=== PATIENT | female | born 1935 | race Caucasian/White ===

== ENCOUNTER 2016-12-10 09:44 | Inpatient (IN) ==
--- NOTE | 2016-12-10 10:15 | Emergency Department Note ---
Disposition Clinical Impression: Retroperitoneal hemorrhage Closed fracture of transverse process of lumbar vertebra Qualifiers: Encounter type: initial encounter Qualified Code(s): S32.009A - Unspecified fracture of unspecified lumbar vertebra, initial encounter for closed fracture Disposition: Admitted As Inpatient Condition: Fair Forms: ED Satisfaction Letter Fall HPI - General Chief Complaint: ED Fall Stated Complaint: Fall Time Seen by Provider: 12/10/16 09:45 Source: patient, EMS, other (nurse from [facility]) Mode of arrival: EMS Limitations: other (History of dementia) Nursing Notes Reviewed: Yes Vital Signs Reviewed: Yes - History of Present Illness Pt Subjective Complaint: fall Onset (ago): Just [employer] Fall From: standing Fall Witnessed: no Place Fall Occurred: group home/SNF Loss of Consciousness: unsure Prolonged Down Time?: no (No, per the group home nurse) Symptoms Prior to Fall: dizziness (Per the patient's nurse, the patient complained of feeling dizzy this morning and was told to stay in bed. Patient denies dizziness and states that she does not think she felt dizzy before she fell.) Context: history of frequent falls (Including a fall last week), unknown Location of injury: head, back Location of injury - extremities: Right: hip, thigh Severity: moderate Quality: stabbing, aching Associated symptoms (after fall): Denies: headache, neck pain, numbness, weakness, chest pain, shortness of breath, abdominal pain, hematuria, unable to walk, lightheaded, vertigo, confusion - Related Data Home Medications Medication Instructions Recorded Confirmed Atorvastatin [Lipitor] 10 mg PO DAILY 10/18/15 03/25/16 Donepezil [Aricept] 10 mg PO HS 10/18/15 03/25/16 Omeprazole [PriLOSEC] 20 mg PO BIDAC 10/18/15 03/25/16 Previous Rx's Medication Instructions Recorded Carvedilol [Coreg] 3.125 mg PO BIDWM tablet 03/29/16 Lisinopril [Zestril] 2.5 mg PO DAILY tablet 03/29/16 OLANZapine [Zyprexa] 2.5 mg PO DAILY #30 tablet 06/12/16 Allergies Allergy/AdvReac Type Severity Reaction Status Date / Time shrimp Allergy Abdominal Verified 11/25/16 20:40 Pain All systems ED: reviewed and negative except as stated. Constitutional: Denies: fever, chills, weakness Eyes: Denies: vision change Cardiovascular: Denies: chest pain, palpitations, dyspnea on exertion Respiratory: Denies: dyspnea Gastrointestinal: Denies: abdominal pain, nausea, vomiting Musculoskeletal: Reports: as per HPI, back pain. Denies: neck pain, joint swelling, arthralgia Integumentary: Denies: abrasion Neurological: Denies: headache, weakness, numbness, paresthesias, confusion, vertigo Hematological/Lymphatic: Denies: easy bleeding, easy bruising Fall PMH - Past Medical History Medical history: Reports: aortic aneurysm (Thoracic), arthritis, dementia, hypertension, osteoporosis Surgical history: Reports: hip replacement, knee replacement, orthopedic, other , other Psychiatric history: Reports: no psych history - Social History Smoking Status: Never smoker Alcohol use: Reports: none Drug use: Reports: none Physical Exam - General Limitations: no limitations General appearance: alert, in no apparent distress - Head Head exam: atraumatic, normocephalic, normal inspection - Eye Eye exam: Present: PERRL, EOMI, nystagmus (Mild horizontal), miosis, other ( Yellow and brown healing ecchymotic are on the right inferior orbital rim). Absent: scleral icterus, conjunctival injection, periorbital swelling, periorbital tenderness - ENT ENT exam: mucous membranes dry - Neck Neck exam: Present: normal inspection, full ROM, trachea midline. Absent: tenderness - Expanded Neck Exam Neck exam focused ED: Absent: midline tenderness, paraspinal tenderness, tenderness (other), anterior neck swelling - Chest Chest inspection: Present: normal inspection, symmetric chest wall rise. Absent : tenderness - Respiratory Respiratory exam: Present: normal lung sounds bilaterally. Absent: respiratory distress - Cardiovascular Cardiovascular exam: Present: regular rate, normal rhythm, normal heart sounds, systolic murmur - Abdominal Exam Abdominal exam: Present: soft, Non-Tender. Absent: tenderness, distention, guarding, rebound, rigidity, mass, pulsatile mass - Extremities Exam Extremities exam: Present: normal inspection, tenderness, normal capillary refill. Absent: pedal edema, joint swelling, calf tenderness - Expanded Lower Extremity Exam Hip/Pelvis exam: Present: normal inspection, tenderness (Anterior proximal femur and pelvis on the right side as well as right SI joint), pelvis stable. Absent: full ROM (Pain with right hip flexion and abduction beyond 30 degrees), swelling, abrasion, ecchymosis, deformity, crepitus, dislocation, erythema, external rotation, internal rotation, shortening Upper leg exam: Present: normal inspection, tenderness. Absent: swelling, abrasion, laceration, ecchymosis, deformity, crepitus, dislocation, erythema Knee exam: Present: full ROM, knee extension intact, other (Well-healed surgical scar). Absent: tenderness, swelling, abrasion, ecchymosis, deformity, crepitus, dislocation, erythema, effusion Lower leg exam: Present: normal inspection, Achilles tendon intact. Absent: tenderness, swelling, abrasion, ecchymosis, deformity, crepitus, dislocation, erythema, Homans' sign Ankle exam: Present: normal inspection, full ROM. Absent: tenderness, swelling , ecchymosis Foot/toe exam: Present: normal inspection, full ROM. Absent: tenderness, swelling, ecchymosis, deformity, erythema Neurovascular/Tendon exam: Present: normal capillary refill. Absent: pulse deficit, motor deficit, sensory deficit, tendon deficit, extremity cold to touch , pallor, foot drop Gait: antalgic (The nurse reports that the patient was able to ambulate from the EMS cot to the hospital bed, but appeared to be in pain) - Back Exam Back exam: Present: tenderness (Midline lumbar spine, sacrum and right SI joint) , vertebral tenderness, sciatic notch tenderness (R). Absent: full ROM, CVA tenderness (R), CVA tenderness (L), muscle spasm, paraspinal tenderness, sciatic notch tenderness (L), straight leg raise (R), straight leg raise (L) - Neurological Exam Neurological exam: Present: alert, CN II-XII intact, reflexes normal. Absent: motor sensory deficit - Expanded Neurological Exam Patient oriented to: Present: person, place Speech: Present: fluid speech Cranial nerves: EOM function (II, III, IV, ): Normal, facial sensation (V): Normal, facial palsy (VII): Normal, gag reflex (IX): Normal, spinal accessory function (XI): Normal, tongue deviation (XII): Normal Cerebellar function: finger to nose: Normal, heel to banks: Abnormal Right (Pain in right hip with range of motion, limits evaluation) Cerebellar function: normal gait (Antalgic) Motor strength - LUE: 5/5 Motor strength - RUE: 5/5 Motor strength - LLE: 5/5 Motor strength - RLE: 5/5 Upper motor neuron exam: elvin neglect: Absent bilaterally, pronator drift: Absent bilaterally, sensory extinction: Absent bilaterally Sensory exam upper extremity: light touch: Normal Sensory exam lower extremity: light touch: Normal DTR: patellar (L): 2+, patellar (R): 2+, Achilles tendon (L): 2+, Achilles tendon (R): 2+ Coma Scale Eye Opening: Spontaneous Coma Scale Motor Response: Obeys Commands Coma Scale Verbal Response: Confused (History of dementia, baseline mental status per group home nurse) Coma Scale Total: 14 - Psychiatric Psychiatric exam: Present: normal affect, normal mood - Skin Skin exam: Present: warm, dry, intact, normal color Course Course Narrative: Patient fell this morning while using her walker to ambulate in her room at the group home. The fall was not witnessed. Patient denies prolonged down time, dizziness, chest pain, shortness of breath, vertigo or nausea prior to the fall. However, she is not completely sure if she lost consciousness or not. She told the nurse that she hit her head on the bed and hit her back on the floor very hard. She is primarily complaining of low back pain and right hip pain. She is a and O 2, person and place, however, this is her baseline mental status [facility]. We will obtain imaging studies and do a screening EKG. Patient declines pain medication at this time. Case was discussed with Dr. Forbes. He has seen the patient and agrees with the assessment and plan. - Reevaluation(s) Reevaluation #1: Patient is resting comfortably, although anxious on the cot. Vitals are improved. She still declines pain medication. I reviewed the imaging study results with her. She states that she wants to go back to the group home. However, when we tried to get her to stand or walk. She is unable to. She states that it is too painful. CT of the lumbar spine and hip have been ordered. Time: 11:25 Reevaluation #2: Results of the CAT scans were discussed with the patient and her daughter. The patient still declines pain medication. The hospitalist was consulted. He has accepted the patient for admission. Time: 12:58 - Consultations Consultation #1: Case was discussed with Dr. Sosa once the lumbar spine CT results were in. He stated that the patient would need a TLSO brace that she could be fitted for one on Tuesday morning at 9 AM in the spine center. After this consult, the patient's hip CT results were called to the ER by the radiologist. She has a possible retroperitoneal hemorrhage. She is hemodynamically stable and is not anticoagulated. She is not on aspirin or Plavix either. Hospitalist was contacted for admission of the patient. A consult to Dr. Sosa was ordered in [facility] Time: 12:19 Vital Signs Temperature 97.9 F 12/10/16 09:46 Pulse Rate 69 12/10/16 09:46 Respiratory Rate 17 12/10/16 09:46 Blood Pressure 172/89 12/10/16 09:46 O2 Sat by Pulse Oximetry 96 12/10/16 09:46 Temperature 97.9 F 12/10/16 09:46 Pulse Rate 70 12/10/16 11:22 Respiratory Rate 17 12/10/16 11:22 Blood Pressure 194/108 12/10/16 11:22 O2 Sat by Pulse Oximetry 97 12/10/16 11:22 Oxygen Delivery Oxygen Delivery Room Air Fall - Medical Records Medical records reviewed: Yes I reviewed the patient's medical records. - Radiology Data Radiology results reviewed: Yes I reviewed the patient's radiology results. Femur X-Ray 12/10/16 09:59 IMPRESSION: No evidence of fracture or prosthetic dislocation D/ / Sudarshan Boyle MD / Sudarshan Boyle MD Interpreting Provider: Sudarshan Boyle MD Pelvis X-Ray 12/10/16 09:59 IMPRESSION: No evidence of fracture or prosthetic dislocation D/ / Sudarshan Boyle MD / Sudarshan Boyle MD Interpreting Provider: Sudarshan Boyle MD Cervical Spine CT 12/10/16 10:11 IMPRESSION: No acute abnormality of the cervical spine. D/ / Sudarshan Boyle MD / Sudarshan Boyle MD Interpreting Provider: Sudarshan Boyle MD Head CT 12/10/16 10:12 IMPRESSION: No acute intracranial abnormality. D/ / 12/10/2016 11:08:24 Marisol Frausto MD / rosibel Interpreting Provider: Marisol Frausto MD Lumbar Spine X-Ray 12/10/16 10:12 IMPRESSION: Severe diffuse lumbar degenerative disease with no evidence of fracture D/ / Sudarshan Boyle MD / Sudarshan Boyle MD Interpreting Provider: Sudarshan Boyle MD Hip CT 12/10/16 11:24 IMPRESSION: Within the limitations of the exam (diffuse bone demineralization as well as streak artifact relating to bilateral hip prostheses) no acute bony abnormalities are seen. Orthopedic hardware appears intact and without evidence for hardware complication. Soft tissue prominence of right iliopsoas muscle concerning for indeterminate grade strain along with some mildly high attenuation right retroperitoneal fluid concerning for hemorrhagic material. Critical results were called by Dr. Rosalio Couch MD to Dr. Saeid Jackson on 12/10/2016 at 12:19. D/ / 12/10/2016 12:23:10 Rosalio Couch MD / rosibel Interpreting Provider: Rosalio Couch MD Lumbar Spine CT 12/10/16 11:24 IMPRESSION: 1. Fractures of the 1st through 4th right transverse processes. 2. No other fractures. 3. Severe multilevel degenerative changes. D/ / 12/10/2016 12:16:17 Saeid Mason MD / rosibel Interpreting Provider: Saeid Mason MD
[2016-12-10] MEDS ORDERED: Acetaminophen 325 MG TABLET PO PRN (13:11)
[2016-12-10] MEDS ORDERED: Naloxone 0.4 MG/ML INJ IVP PRN (13:11)
--- NOTE | 2016-12-10 13:26 | Internal Med History&Physical ---
<Suzie Preston M - Last Filed: 12/10/16 17:03> Date of Encounter: 12/10/16 Time of Encounter: 13:23 Assessment and Plan (1) Closed fracture of transverse process of lumbar vertebra Current visit: Yes Status: Acute Patient suffered a mechanical fall at her extended care facility. Imaging revealed fractures of the L1-L4 transverse processes. Dr. Daley of Orthopedic surgery consulted, plans for brace and no surgical intervention. We will control pain associated with injury. (2) Acute pain due to injury Current visit: Yes Status: Acute Patient reports pain to lower back and right hip after fall. Imaging reveals acute fractures of L1-L4 as well as right ileospoas hematoma. Tyelonol, norco and morphine PRN for pain. Narcan PRN for respiratory depression. (3) Falls Current visit: Yes Status: Acute Patient resides in a correction and has had several falls over the last few months. She uses a walker to ambulate. CT of head and cervical spine revealed no acute abnormality. CT of lumbar spine revealed fractures of L1-L4 transverse processes. Fall precautions PT/OT consults (4) Retroperitoneal hemorrhage Current visit: Yes Status: Acute Patient suffered a fall this morning and reported pain in low back and right hip. Imaging revealed fractures of L1-L4 transverse processes as well as right ileopsoas hematoma. Will control patients pain and monitor for worsening of condition. (5) Dementia Current visit: No Status: Chronic Patient with known dementia, resides at extended care facility. Continue home dose of Aricept. Social work consult for discharge planning. (6) HTN (hypertension) Current visit: No Status: Chronic Patient's blood pressure has been elevated since arrival. Likely secondary to pain. Will continue home doses of lisinopril, coreg, and control pain. If blood pressure still elevated will add PRN hydralazine. (7) DVT prophylaxis Current visit: Yes Status: Acute Sequential compression devices. Patient has retroperitoneal/right ileospoas hematoma, will not add pharmacologic prophylaxis. Internal Medicine - H&P: HPI Chief complaint: fall Admitted From: Emergency Dept Plans for Post Hospital Care: Transfer [facility] History of present illness: Ms. Hudson is a 81 year old female with hypertension, hyperlipidemia, dementia , presented to the emergency department from her long-term care facility after suffering a fall. The fall was unwitnessed, patient denies any lightheadedness or dizziness prior to fall and description sounds like a mechanical fall. Patient was reporting pain in her low back and right hip and reports that is where she fell she denies any lightheadedness, headache, chest pain, palpitations, shortness of breath, numbness or tingling, loss of bowel or bladder. Evaluation in the emergency department included x-rays of her pelvis and hip, CT of the cervical spine which showed no acute abnormality, CT of the head which showed no acute abnormality. CT of the lumbar spine revealed fractures of L1-L4 transverse processes. CT of the right hip revealed right iliopsoas hematoma. [facility] and plans to coordinate her brace, however patient is not in need of any surgical intervention. On exam, patient is alert and oriented 2 which is her baseline. She does report pain in her right hip and low back. Lungs are clear bilaterally to auscultation, heart has regular rate and rhythm. Peripheral pulses, sensation, and movement are intact bilaterally. Past Med Surg Social Fam HX - Past Medical History Medical history: aortic aneurysm (Thoracic), arthritis, dementia, hypertension, osteoporosis Psychiatric history: no psych history - Past Surgical History Surgical History: hip replacement, knee replacement, orthopedic, other, other - Social History Smoking Status: Never smoker Smokeless Tobacco Status: No Alcohol use: none Drug use: none - Family History Mother Living Status: Hx Family Cardiac Disorders: Yes Hx Family Cancer: Yes Hx Family Endocrine Disorder: Yes (dm) Father Living Status: Hx Family Cardiac Disorders: Yes Internal Medicine - H&P: Meds Atorvastatin [Lipitor] 10 mg PO HS 10/18/15 [History] Donepezil [Aricept] 10 mg PO HS 10/18/15 [History] OLANZapine [Zyprexa] 2.5 mg PO DAILY #30 tablet 06/12/16 [Rx] Cholecalciferol (D-3) [Vitamin D] 1,000 unit PO DAILY 12/10/16 [History] Cyanocobalamin (Vitamin B-12) [Vitamin B12] 1,000 mcg PO 12/10/16 [History] Docusate [Colace] 100 mg PO BID 12/10/16 [History] Lisinopril [Zestril] 5 mg PO QAM 12/10/16 [History] Magnesium Hydroxide [Milk of Magnesia] 2,400 mg PO DAILY PRN 12/10/16 [History] Melatonin [Melatin] 3 mg PO HS 12/10/16 [History] Memantine HCl 10 mg PO QAM 12/10/16 [History] Omeprazole [PriLOSEC] 20 mg PO QAM 12/10/16 [History] Polyethylene Glycol 3350 [MiraLAX bowel prep] 17 gm PO DAILY 12/10/16 [History] Sertraline [Zoloft] 25 mg PO QAM 12/10/16 [History] Allergies shrimp Allergy (Verified 11/25/16 20:40) Abdominal Pain N/V/D All Systems PM: A 10-system review of systems was performed and is negative for pertinent findings except as documented above in the HPI. - Constitutional Constitutional: no chills, no fever(s), no night sweats - EENT Eyes: no change in vision, no discharge, no pain, no photophobia Ears: no ear discharge, no ear pain, no tinnitus Nose, mouth and throat: no dysphagia, no nasal discharge, no neck pain, no sore throat - Cardiovascular Cardiovascular ROS IM: no chest pain, no diaphoresis, no dyspnea, no lightheadedness, no palpitations, no syncope - Respiratory Respiratory: no cough, no dyspnea, no wheezing, no excessive phlegm production - Gastrointestinal Gastrointestinal: no abdominal pain, no diarrhea, no hematemesis, no hematochezia, no melena, no nausea, no vomiting - Genitourinary Genitourinary: no change in urinary stream, no dysuria, no flank pain, no hematuria - Musculoskeletal Musculoskeletal ROS IM: arthralgias (hip pain), back pain, no numbness, no tingling - Integumentary Integumentary IM: no rash, no unusual bruising - Neurological Neurological ROS: no confusion, no convulsions, no focal weakness, no numbness, no tingling, no tremor(s) - Hematologic/Lymphatic Hematologic/Lymphatic: no easy bruising - Constitutional Vitals: Temp Pulse Resp BP Pulse Ox 97.9 F 70 17 194/108 97 12/10/16 09:46 12/10/16 11:22 12/10/16 11:22 12/10/16 11:22 12/10/16 11:22 General appearance: Present: A&O X 2, pleasant, no acute distress - Head Head exam: Present: atraumatic, normocephalic - Eye Eye exam: Present: PERRL, conjuntiva pink, sclera anicteric Pupils: Present: PERRL - Neck Neck exam general surgery: Present: supple, trachea midline. Absent: lymphadenopathy - Respiratory Respiratory exam: Present: CTAB. Absent: accessory muscle use, rales, rhonchi, wheezes - Cardiovascular Cardiovascular exam: Present: RRR, +S1, +S2. Absent: diastolic murmur, gallop, rubs, systolic murmur - GI/Abdominal GI/Abdominal exam: Present: normal bowel sounds, soft, no peritoneal signs. Absent: distended, tenderness - Extremities Exam Extremities exam: Present: warm, radial pulses palpable and symetrical. Absent : calf tenderness, cyanotic, pedal edema - Expanded Lower Extremities Exam Hip exam: Present: normal inspection, tenderness. Absent: ecchymosis, erythema , full ROM (limited due to pain), swelling Upper Leg exam: Present: normal inspection, tenderness. Absent: ecchymosis, erythema Knee exam: Present: full ROM, normal inspection. Absent: tenderness Ankle exam: Present: full ROM, normal inspection. Absent: tenderness Neuro vascular tendon exam: Absent: pulse deficit, sensory deficit - Neurological Exam Neurological exam: Present: CN II-XII intact, no focal deficits. Absent: facial droop, speech deficit - Expanded Neurological Exam Patient oriented to: Present: person, place Sensory exam: lower extremity light touch: Normal Neuro motor strength exam: LUE: 4, RUE: 4, LLE: 4, RLE: 4 - Skin Skin exam: Present: dry, intact Internal Med - H&P Results - Diagnostic Studies CT scan - head Additional comments: Head CT 12/10/16 10:12 IMPRESSION: No acute intracranial abnormality. D/ / 12/10/2016 11:08:24 Marisol Frausto MD / rosibel Interpreting Provider: Marisol Frausto MD Other Images Additional comments: Femur X-Ray 12/10/16 09:59 IMPRESSION: No evidence of fracture or prosthetic dislocation D/ / Sudarshan Boyle MD / Sudarshan Boyle MD Interpreting Provider: Sudarshan Boyle MD Pelvis X-Ray 12/10/16 09:59 IMPRESSION: No evidence of fracture or prosthetic dislocation D/ / Sudarshan Boyle MD / Sudarshan Boyle MD Interpreting Provider: Sudarshan Boyle MD Cervical Spine CT 12/10/16 10:11 IMPRESSION: No acute abnormality of the cervical spine. D/ / Sudarshan Boyle MD / Sudarshan Boyle MD Interpreting Provider: Sudarshan Boyle MD Lumbar Spine X-Ray 12/10/16 10:12 IMPRESSION: Severe diffuse lumbar degenerative disease with no evidence of fracture D/ / Sudarshan Boyle MD / Sudarshan Boyle MD Interpreting Provider: Sudarshan Boyle MD Hip CT 12/10/16 11:24 IMPRESSION: Within the limitations of the exam (diffuse bone demineralization as well as streak artifact relating to bilateral hip prostheses) no acute bony abnormalities are seen. Orthopedic hardware appears intact and without evidence for hardware complication. Soft tissue prominence of right iliopsoas muscle concerning for indeterminate grade strain along with some mildly high attenuation right retroperitoneal fluid concerning for hemorrhagic material. Critical results were called by Dr. Rosalio Couch MD to Dr. Saeid Jackson on 12/10/2016 at 12:19. D/ / 12/10/2016 12:23:10 Rosalio Couch MD / rosibel Interpreting Provider: Rosalio Couch MD Lumbar Spine CT 12/10/16 11:24 IMPRESSION: 1. Fractures of the 1st through 4th right transverse processes. 2. No other fractures. 3. Severe multilevel degenerative changes. D/ / 12/10/2016 12:16:17 Saeid Mason MD / [email or web address] Interpreting Provider: Saeid Mason MD <Wilfrid March - Last Filed: 12/10/16 18:44> Date of Encounter: 12/10/16 Time of Encounter: 14:00 Internal Medicine - H&P: HPI History of present illness: Ms. Hudson is a 81 year old female All Systems PM: A 10-system review of systems was performed and is negative for pertinent findings except as documented above in the HPI. - Constitutional Vitals: Temp Pulse Resp BP Pulse Ox 97.9 F 63 18 158/85 95 12/10/16 14:05 12/10/16 14:05 12/10/16 14:05 12/10/16 14:05 12/10/16 14:05 - Attending Attestation I examined this patient and my medical decision-making was reviewed with the nurse practitioner. I agree with the documented history of present illness, review of systems, past medical, surgical social and family histories and examination findings, disposition and treatment plan as described above except to any changes set forth below. 81-year-old female patient who resides at correction with history of hypertension, hyperlipidemia, dementia presented to ER after a fall. Was evaluated in ER and found to have transverse process fractures involving L1-L4 spine. Also had iliopsoas hematoma on the right side. Currently patient is pain free as long as she does not move in bed. No bowel or bladder incontinence reported. Spine surgery has been consulted. Recommend TLSO brace to stabilize L-spine. Patient unable to ambulate due to pain. We will observe overnight and consult physical therapy and social media coordinator for further evaluation and management. Pain control. DVT prophylaxis with SCDs.
--- NOTE | 2016-12-10 15:32 | Electrocardiograph Report ---
[address] [place], [place] [address] Test Date: 2016-12-10 Pat Name: Catarina [place] Department: 105 Room: [facility] Gender: F General Engineer: : 1935 Requested By: Haylee Vernon Order Number: [id number] Reading MD: Janel Zhang Measurements Intervals [place] Rate: 58 P: 46 DC: 150 QRS: 42 QRSD: 89 T: 44 QT: 399 QTc: 396 Interpretive Statements SINUS BRADYCARDIA Electronically Signed On 12-10-2016 15:30:58 EDT by Janel Zhang
[2016-12-10] MEDS: *HR* HYDROcodone/Acet 5/325 mg TABLET PO PRN (15:51)
--- NOTE | 2016-12-10 16:13 | Event Note ---
Date of Encounter: 12/10/16 Time of Encounter: 14:00 I examined this patient and my medical decision-making was reviewed with the nurse practitioner. I agree with the documented history of present illness, review of systems, past medical, surgical social and family histories and examination findings, disposition and treatment plan as described above except to any changes set forth below. 81-year-old female patient who resides at custodial with history of hypertension, hyperlipidemia, dementia presented to ER after a fall. Was evaluated in ER and found to have transverse process fractures involving L1-L4 spine. Also had iliopsoas hematoma on the right side. Currently patient is pain free as long as she does not move in bed. No bowel or bladder incontinence reported. Spine surgery has been consulted. Recommend TLSO brace to stabilize L-spine. Patient unable to ambulate due to pain. We will observe overnight and consult physical therapy and social insurance analyst for further evaluation and management. Pain control. DVT prophylaxis with SCDs.
--- NOTE | 2016-12-10 17:04 | Orthopedic Consult Note ---
Date of Encounter: 12/10/16 Time of Encounter: 17:00 Assessment and Plan (1) Closed fracture of transverse process of lumbar vertebra Current Visit: Yes Status: Acute Reviewed Lumbar CT - right transverse process fractures L1-4. Discussed situation with patient and daughter. Will plan for TLSO brace to be worn while ambulating and moving. May take off when resting in bed. Avoid bending, twisting, lifting. Physical and occupational therapy. Pain control. Follow up with spine provider in the office after discharge. Thank you for this consultation. Qualifiers: Encounter type: initial encounter Qualified Code(s): S32.009A - Unspecified fracture of unspecified lumbar vertebra, initial encounter for closed fracture (2) Acute pain due to injury Current Visit: Yes Status: Acute History of Present Illness Chief complaint: Back pain HPI: Ms. Hudson is a 81 year old female admitted for back pain and spinal fractures. Spine surgery consulted. Fractures noted to L1-[address] Patient's daughter Kathleen is at bedside. Patient states she fell but not sure how. States her back hurts and she is afraid to move in bed secondary to pain. At [facility] where she resides she states that she has a 2 wheeled walker. Admits to history of back surgery to remove bone spurs. Admits to bilateral hip replacements and right knee replacement by Dr. Morris. Denies loss of bowel or bladder control. Denies altered sensation in bilateral lower extremities. Denies loss of motor function. Patient alert and oriented to person. She is resting comfortably in bed. Head normocephalic. Ecchymosis noted to bilateral cheeks. Bilateral upper and lower extremities equal motion, strength, and neurovascularly intact. Abd soft and nontender. diver's tender along right lumbar paraspinal region. Reviewed Lumbar CT - right transverse process fractures L1-4. Discussed situation with patient and daughter. Will plan for TLSO brace to be worn while ambulating and moving. May take off when resting in bed. Avoid bending, twisting, lifting. Physical and occupational therapy. Pain control. Follow up with spine provider in the office after discharge. Thank you for this consultation. Past Med Surg Social Fam HX - Past Medical History Medical history: aortic aneurysm, arthritis, dementia, hypertension, osteoporosis Psychiatric history: no psych history - Past Surgical History Surgical History: hip replacement, knee replacement, orthopedic, other, other - Social History Smoking Status: Never smoker Smokeless Tobacco Status: No Alcohol use: none Drug use: none - Family History Mother Living Status: Hx Family Cardiac Disorders: Yes Hx Family Cancer: Yes Hx Family Endocrine Disorder: Yes (dm) Father Living Status: Hx Family Cardiac Disorders: Yes Medications and Allergies Atorvastatin [Lipitor] 10 mg PO HS 10/18/15 [History] Donepezil [Aricept] 10 mg PO HS 10/18/15 [History] OLANZapine [Zyprexa] 2.5 mg PO DAILY #30 tablet 06/12/16 [Rx] Cholecalciferol (D-3) [Vitamin D] 1,000 unit PO DAILY 12/10/16 [History] Cyanocobalamin (Vitamin B-12) [Vitamin B12] 1,000 mcg PO 12/10/16 [History] Docusate [Colace] 100 mg PO BID 12/10/16 [History] Lisinopril [Zestril] 5 mg PO QAM 12/10/16 [History] Magnesium Hydroxide [Milk of Magnesia] 2,400 mg PO DAILY PRN 12/10/16 [History] Melatonin [Melatin] 3 mg PO HS 12/10/16 [History] Memantine HCl 10 mg PO QAM 12/10/16 [History] Omeprazole [PriLOSEC] 20 mg PO QAM 12/10/16 [History] Polyethylene Glycol 3350 [MiraLAX bowel prep] 17 gm PO DAILY 12/10/16 [History] Sertraline [Zoloft] 25 mg PO QAM 12/10/16 [History] Allergies shrimp Allergy (Verified 11/25/16 20:40) Abdominal Pain N/V/D All Systems Reviewed: A 10-system review of systems was performed and is negative for pertinent findings except as documented above in the HPI. Physical Exam - Constitutional Vitals: Temp Pulse Resp BP Pulse Ox 97.9 F 63 18 158/85 95 12/10/16 14:05 12/10/16 14:05 12/10/16 14:05 12/10/16 14:05 12/10/16 14:05 Results - Labs Labs: All other labs normal. Consult Discharge Plan - Plan Referrals: NO,PCP [Primary Care Provider] -
[2016-12-11 05:21] LABS: Basophils % 0.6 %; Eosinophils # 0.3 K/mcL (0.0-0.6); Eosinophils % 5.8 %; Hematocrit 34.4 % (35.3-44.9); Hemoglobin 10.9 g/dL (11.5-15.4); Immature Granulocytes % 0.7 % (0-4); Lymphocytes # 1.6 K/mcL (0.6-4.6); Lymphocytes % 29.1 %; Mean Corpuscular HGB Conc 31.7 g/dL (31.6-35.5); Mean Corpuscular Hemoglobin 28.4 pg (28.0-33.3); Mean Corpuscular Volume 89.6 fL (83.0-100.0); Mean Platelet Volume 9.3 fL (9.4-12.4); Monocytes # 0.6 K/mcL (0.0-1.3); Monocytes % 10.8 %; Neutrophils # 2.9 K/mcL (1.6-8.9); Platelet Count 206 K/mcL (140-400); Red Blood Count 3.84 M/mcL (3.82-4.97); Red Cell Distribution Width 14.8 % (11.5-14.5)
[2016-12-11 05:30] LABS: BUN/Creatinine Ratio 23 (6-26); Blood Urea Nitrogen 18 mg/dL (7-20); Calcium 8.8 mg/dL (8.6-10.8); Carbon Dioxide 27 mEq/L (19-29); Chloride 106 mEq/L (98-109); Glucose 98 mg/dL (70-99); Osmolality,Calculated 292 (280-300); Sodium 140 mEq/L (136-145); eGFR For African Americans > 60 (> 60); eGFR For Non-African Americans > 60 (> 60)
[2016-12-11] MEDS: *HR* HYDROcodone/Acet 5/325 mg TABLET PO PRN ×2 (06:54→13:28)
[2016-12-11] MEDS: OLANZapine 5 MG TAB.RAPDIS PO SCH (11:10)
[2016-12-11] MEDS: *HR* Morphine 2 MG/ML SYRINGE IVP PRN (16:30)
--- NOTE | 2016-12-11 17:04 | Internal Med Progress Note ---
Date of Encounter: 12/11/16 Time of Encounter: 17:01 - Assessment and plan (1) Closed fracture of transverse process of lumbar vertebra Current Visit: Yes Status: Acute Qualifiers: Encounter type: initial encounter Qualified Code(s): S32.009A - Unspecified fracture of unspecified lumbar vertebra, initial encounter for closed fracture (2) Retroperitoneal hemorrhage Current Visit: Yes Status: Acute (3) Acute pain due to injury Current Visit: Yes Status: Acute (4) Falls Current Visit: Yes Status: Acute Qualifiers: Encounter type: initial encounter Qualified Code(s): W19.XXXA - Unspecified fall, initial encounter (5) DVT prophylaxis Current Visit: Yes Status: Acute - Subjective Interval history: Mrs. Alysha Hudson is an 81-year-old female presented with a fall and multiple lumbar vertebral fractures. She stays at [facility] term and has been having frequent falls. She described that she feels dizzy and before falling she knows that she is going to fall but has not lost her consciousness ever and neither did she loss control of bowel or bladder. She denies any vertigo but does seem dizzy. Overall she is very frail appearing female. However on physical examination she moves all extremity and her muscle strength is pretty good and she denies any bowel or bladder incontinence. CT abdomen showed retroperitoneal hemorrhage from ileus sauce and we are repeating CBC everyday to keep an eye on her hemoglobin but overall looks okay. At this time she is on pain control physical therapy evaluation and possible long term placement next week. - Constitutional Vitals: Temp Pulse Resp BP Pulse Ox 97.5 F L 58 22 157/72 95 12/11/16 14:34 12/11/16 16:17 12/11/16 14:34 12/11/16 16:17 12/11/16 16:17 General appearance: Present: A&O X 2, pleasant, no acute distress - Head Head exam: Present: atraumatic, normocephalic - Eye Eye exam: Present: PERRL, conjuntiva pink, sclera anicteric Pupils: Present: PERRL - Neck Neck exam general surgery: Present: supple, trachea midline. Absent: lymphadenopathy - Respiratory Respiratory exam: Present: CTAB. Absent: accessory muscle use, rales, rhonchi, wheezes - Cardiovascular Cardiovascular exam: Present: RRR, +S1, +S2. Absent: diastolic murmur, gallop, rubs, systolic murmur - GI/Abdominal GI/Abdominal exam: Present: normal bowel sounds, soft, no peritoneal signs. Absent: distended, tenderness - Extremities Exam Extremities exam: Present: warm, radial pulses palpable and symetrical. Absent : calf tenderness, cyanotic, pedal edema - Neurological Exam Neurological exam: Present: CN II-XII intact, oriented X3, no focal deficits. Absent: pronater drift, facial droop, speech deficit Additional comments: Gait deferred as she is in quite a bit of pain however now she is wearing TLSO - Skin Skin exam: Present: dry, intact Internal Medicine: Result - Labs CBC & Chem 7: 12/11/16 05:10 12/11/16 05:10 Labs: Short CBC 12/11/16 Range/Units 05:10 WBC 5.4 (4.3-11.1) K/mcL Hgb 10.9 L (11.5-15.4) g/dL Hct 34.4 L (35.3-44.9) % Plt Count 206 (140-400) K/mcL Neutrophils # 2.9 (1.6-8.9) K/mcL BMP 12/11/16 05:10 Sodium 140 Potassium 4.0 Chloride 106 Carbon Dioxide 27 BUN 18 Creatinine 0.78 Glucose 98 Calcium 8.8 - VTE Documentation of Mechanical Device: Intermittent pneumatic compression device Consult Discharge Plan - Plan Referrals: NO,PCP [Primary Care Provider] -
--- NOTE | 2016-12-11 17:09 | Internal Med Progress Note ---
Date of Encounter: 12/11/16 Time of Encounter: 12:00 - Assessment and plan (1) Closed fracture of transverse process of lumbar vertebra Current Visit: Yes Status: Acute Qualifiers: Encounter type: initial encounter Qualified Code(s): S32.009A - Unspecified fracture of unspecified lumbar vertebra, initial encounter for closed fracture (2) Retroperitoneal hemorrhage Current Visit: Yes Status: Acute (3) Acute pain due to injury Current Visit: Yes Status: Acute (4) Falls Current Visit: Yes Status: Acute Qualifiers: Encounter type: initial encounter Qualified Code(s): W19.XXXA - Unspecified fall, initial encounter (5) DVT prophylaxis Current Visit: Yes Status: Acute - Subjective Interval history: Mrs. Alysha Hudson is an 81-year-old female presented with a fall and multiple lumbar vertebral fractures. [facility] and has been having frequent falls. She described that she feels dizzy and before falling she knows that she is going to fall but has not lost her consciousness ever and neither did she loss control of bowel or bladder. She denies any vertigo but does seem dizzy. Overall she is very frail appearing female. However on physical examination she moves all extremity and her muscle strength is pretty good and she denies any bowel or bladder incontinence. CT abdomen showed retroperitoneal hemorrhage from ileus sauce and we are repeating CBC everyday to keep an eye on her hemoglobin but overall looks okay. At this time she is on pain control physical therapy evaluation and possible retirement placement next week. - Constitutional Vitals: Temp Pulse Resp BP Pulse Ox 97.5 F L 58 22 157/72 95 12/11/16 14:34 12/11/16 16:17 12/11/16 14:34 12/11/16 16:17 12/11/16 16:17 General appearance: Present: A&O X 2, pleasant, no acute distress - Head Head exam: Present: atraumatic, normocephalic - Eye Eye exam: Present: PERRL, conjuntiva pink, sclera anicteric Pupils: Present: PERRL - Neck Neck exam general surgery: Present: supple, trachea midline. Absent: lymphadenopathy - Respiratory Respiratory exam: Present: CTAB. Absent: accessory muscle use, rales, rhonchi, wheezes - Cardiovascular Cardiovascular exam: Present: RRR, +S1, +S2. Absent: diastolic murmur, gallop, rubs, systolic murmur - GI/Abdominal GI/Abdominal exam: Present: normal bowel sounds, soft, no peritoneal signs. Absent: distended, tenderness - Extremities Exam Extremities exam: Present: warm, radial pulses palpable and symetrical. Absent : calf tenderness, cyanotic, pedal edema - Neurological Exam Neurological exam: Present: CN II-XII intact, oriented X3, no focal deficits. Absent: pronater drift, facial droop, speech deficit Additional comments: Knowing all extremities and strength is being sent 5/5 gait deferred plantar strong bilaterally - Skin Skin exam: Present: dry, intact Internal Medicine: Result - Labs CBC & Chem 7: 12/11/16 05:10 12/11/16 05:10 Labs: Short CBC 12/11/16 Range/Units 05:10 WBC 5.4 (4.3-11.1) K/mcL Hgb 10.9 L (11.5-15.4) g/dL Hct 34.4 L (35.3-44.9) % Plt Count 206 (140-400) K/mcL Neutrophils # 2.9 (1.6-8.9) K/mcL BMP 12/11/16 05:10 Sodium 140 Potassium 4.0 Chloride 106 Carbon Dioxide 27 BUN 18 Creatinine 0.78 Glucose 98 Calcium 8.8 - VTE Documentation of Mechanical Device: Intermittent pneumatic compression device Consult Discharge Plan - Plan Referrals: NO,PCP [Primary Care Provider] -
[2016-12-12 04:11] LABS: Alanine Aminotransferase 6 Units/L (0-55); Albumin 2.8 g/dL (3.5-5.0); Albumin/Globulin Ratio 0.8 (1.1-2.2); Alkaline Phosphatase 73 Units/L (38-126); Aspartate Amino Transferase 17 Units/L (5-34); BUN/Creatinine Ratio 27 (6-26); Bilirubin,Total 0.5 mg/dL (0.2-1.2); Blood Urea Nitrogen 21 mg/dL (7-20); Calcium 8.8 mg/dL (8.6-10.8); Carbon Dioxide 26 mEq/L (19-29); Chloride 105 mEq/L (98-109); Globulin 3.3 g/dL (2.4-3.5); Glucose 100 mg/dL (70-99); Osmolality,Calculated 293 (280-300); Potassium 3.7 mEq/L (3.5-4.5); Sodium 140 mEq/L (136-145); Total Protein 6.1 g/dL (6.0-8.3); eGFR For African Americans > 60 (> 60); eGFR For Non-African Americans > 60 (> 60)
[2016-12-12] MEDS: OLANZapine 5 MG TAB.RAPDIS PO SCH (09:46)
[2016-12-12] MEDS: *HR* HYDROcodone/Acet 5/325 mg TABLET PO PRN ×2 (13:37→19:01)
[2016-12-12] MEDS: *HR* Morphine 2 MG/ML SYRINGE IVP PRN (17:03)
--- NOTE | 2016-12-12 17:11 | Internal Med Progress Note ---
Date of Encounter: 12/12/16 Time of Encounter: 17:10 - Assessment and plan (1) Closed fracture of transverse process of lumbar vertebra Current Visit: Yes Status: Acute Qualifiers: Encounter type: initial encounter Qualified Code(s): S32.009A - Unspecified fracture of unspecified lumbar vertebra, initial encounter for closed fracture (2) Retroperitoneal hemorrhage Current Visit: Yes Status: Acute (3) Acute pain due to injury Current Visit: Yes Status: Acute (4) Falls Current Visit: Yes Status: Acute Qualifiers: Encounter type: initial encounter Qualified Code(s): W19.XXXA - Unspecified fall, initial encounter (5) DVT prophylaxis Current Visit: Yes Status: Acute - Subjective Interval history: Mrs. Alysha Hudson is an 81-year-old female presented with a fall and multiple lumbar vertebral fractures. [facility] and has been having frequent falls. She described that she feels dizzy and before falling she knows that she is going to fall but has not lost her consciousness ever and neither did she loss control of bowel or bladder. She denies any vertigo but does seem dizzy. Overall she is very frail appearing female. However on physical examination she moves all extremity and her muscle strength is pretty good and she denies any bowel or bladder incontinence. CT abdomen showed retroperitoneal hemorrhage from ileus sauce and we are repeating CBC everyday to keep an eye on her hemoglobin but overall looks okay. At this time she is on pain control physical therapy evaluation and possible [facility] placement next week. - Constitutional Vitals: Temp Pulse Resp BP Pulse Ox 97.9 F 65 18 109/69 95 12/12/16 15:13 12/12/16 15:13 12/12/16 15:13 12/12/16 15:13 12/12/16 15:13 General appearance: Present: A&O X 2, pleasant, no acute distress - Head Head exam: Present: atraumatic, normocephalic - Eye Eye exam: Present: PERRL, conjuntiva pink, sclera anicteric Pupils: Present: PERRL - Neck Neck exam general surgery: Present: supple, trachea midline. Absent: lymphadenopathy - Respiratory Respiratory exam: Present: CTAB. Absent: accessory muscle use, rales, rhonchi, wheezes - Cardiovascular Cardiovascular exam: Present: RRR, +S1, +S2. Absent: diastolic murmur, gallop, rubs, systolic murmur - GI/Abdominal GI/Abdominal exam: Present: normal bowel sounds, soft, no peritoneal signs. Absent: distended, tenderness - Extremities Exam Extremities exam: Present: warm, radial pulses palpable and symetrical. Absent : calf tenderness, cyanotic, pedal edema - Neurological Exam Neurological exam: Present: CN II-XII intact, oriented X3, no focal deficits. Absent: pronater drift, facial droop, speech deficit - Skin Skin exam: Present: dry, intact Internal Medicine: Result - Labs CBC & Chem 7: 12/11/16 05:10 12/12/16 03:19 - VTE Documentation of Mechanical Device: Graduated compression elastic hosiery Consult Discharge Plan - Plan Referrals: NO,PCP [Primary Care Provider] -
[2016-12-13 04:27] LABS: Basophils % 0.6 %; Eosinophils # 0.4 K/mcL (0.0-0.6); Eosinophils % 6.3 %; Hemoglobin 10.4 g/dL (11.5-15.4); Immature Granulocytes % 0.5 % (0-4); Lymphocytes % 30.5 %; Mean Corpuscular HGB Conc 32.5 g/dL (31.6-35.5); Mean Corpuscular Hemoglobin 29.2 pg (28.0-33.3); Mean Corpuscular Volume 89.9 fL (83.0-100.0); Mean Platelet Volume 10.4 fL (9.4-12.4); Monocytes # 0.6 K/mcL (0.0-1.3); Monocytes % 9.3 %; Neutrophils # 3.4 K/mcL (1.6-8.9); Platelet Count 199 K/mcL (140-400); Red Blood Count 3.56 M/mcL (3.82-4.97); Red Cell Distribution Width 14.9 % (11.5-14.5); Segmented Neutrophils % 52.8 %
[2016-12-13 04:46] LABS: Albumin 2.7 g/dL (3.5-5.0); Albumin/Globulin Ratio 0.8 (1.1-2.2); Alkaline Phosphatase 70 Units/L (38-126); Aspartate Amino Transferase 15 Units/L (5-34); BUN/Creatinine Ratio 36 (6-26); Bilirubin,Total 0.6 mg/dL (0.2-1.2); Blood Urea Nitrogen 26 mg/dL (7-20); Calcium 8.4 mg/dL (8.6-10.8); Carbon Dioxide 26 mEq/L (19-29); Chloride 109 mEq/L (98-109); Globulin 3.2 g/dL (2.4-3.5); Glucose 104 mg/dL (70-99); Osmolality,Calculated 299 (280-300); Potassium 3.8 mEq/L (3.5-4.5); Sodium 142 mEq/L (136-145); Total Protein 5.9 g/dL (6.0-8.3); eGFR For African Americans > 60 (> 60); eGFR For Non-African Americans > 60 (> 60)
[2016-12-13 04:48] LABS: Alanine Aminotransferase < 6 Units/L (0-55)
[2016-12-13] MEDS: *HR* Morphine 2 MG/ML SYRINGE IVP PRN (05:52)
[2016-12-13] MEDS: OLANZapine 5 MG TAB.RAPDIS PO SCH (08:35)
[2016-12-13] MEDS: *HR* HYDROcodone/Acet 5/325 mg TABLET PO PRN ×2 (08:37→14:55)
--- NOTE | 2016-12-13 15:16 | Physician Discharge Referral ---
Home Health/Hosp Referral Info Transfer to: Home Health Attending Provider: RAJESH Provider in Charge Post Discharge: PCP - Diagnosis (1) Closed fracture of transverse process of lumbar vertebra Status: Acute (2) Retroperitoneal hemorrhage Status: Acute (3) Acute pain due to injury Status: Acute (4) Falls Status: Acute (5) DVT prophylaxis Status: Acute - Respiratory Orders Smoking Cessation: Smoking cessation has been advised. For more information, call the [facility] Tobacco Quit Line at 5-138-GHUK-NOW. - Transfer Medications Home Medications: Atorvastatin [Lipitor] 10 mg PO HS 10/18/15 [History] Donepezil [Aricept] 10 mg PO HS 10/18/15 [History] OLANZapine [Zyprexa] 2.5 mg PO DAILY #30 tablet 06/12/16 [Rx] Cholecalciferol (D-3) [Vitamin D] 1,000 unit PO DAILY 12/10/16 [History] Cyanocobalamin (Vitamin B-12) [Vitamin B12] 1,000 mcg PO 12/10/16 [History] Docusate [Colace] 100 mg PO BID 12/10/16 [History] Lisinopril [Zestril] 5 mg PO QAM 12/10/16 [History] Magnesium Hydroxide [Milk of Magnesia] 2,400 mg PO DAILY PRN 12/10/16 [History] Melatonin [Melatin] 3 mg PO HS 12/10/16 [History] Memantine HCl 10 mg PO QAM 12/10/16 [History] Omeprazole [PriLOSEC] 20 mg PO QAM 12/10/16 [History] Polyethylene Glycol 3350 [MiraLAX bowel prep] 17 gm PO DAILY 12/10/16 [History] Sertraline [Zoloft] 25 mg PO QAM 12/10/16 [History] Allergies/Adverse Reactions: Allergies shrimp Allergy (Verified 11/25/16 20:40) Abdominal Pain N/V/D Certification: Further, I certify that my clinical findings support that this patient is homebound (i.e. absences from home require considerable and taxing effort and are for medical reasons or voodoo services or infrequently or short duration when for other reasons) because: Attestation: My signature below is to certify that this patient is under my care and that I, or nurse practitioner, or a physician's information assistant working with me, has a face-to -face encounter with this patient.
--- NOTE | 2016-12-13 15:17 | Physician Discharge Referral ---
ExtendedCare Referral Info Transfer To: F Provider in Charge: RAJESH Provider in Charge after Transfer: PCP Institutional Level of Care: Skilled - Diagnosis (1) Closed fracture of transverse process of lumbar vertebra Status: Acute (2) Retroperitoneal hemorrhage Status: Acute (3) Acute pain due to injury Status: Acute (4) Falls Status: Acute (5) DVT prophylaxis Status: Acute - Transfer Medications Home Medications: Atorvastatin [Lipitor] 10 mg PO HS 10/18/15 [History] Donepezil [Aricept] 10 mg PO HS 10/18/15 [History] OLANZapine [Zyprexa] 2.5 mg PO DAILY #30 tablet 06/12/16 [Rx] Cholecalciferol (D-3) [Vitamin D] 1,000 unit PO DAILY 12/10/16 [History] Cyanocobalamin (Vitamin B-12) [Vitamin B12] 1,000 mcg PO 12/10/16 [History] Docusate [Colace] 100 mg PO BID 12/10/16 [History] Lisinopril [Zestril] 5 mg PO QAM 12/10/16 [History] Magnesium Hydroxide [Milk of Magnesia] 2,400 mg PO DAILY PRN 12/10/16 [History] Melatonin [Melatin] 3 mg PO HS 12/10/16 [History] Memantine HCl 10 mg PO QAM 12/10/16 [History] Omeprazole [PriLOSEC] 20 mg PO QAM 12/10/16 [History] Polyethylene Glycol 3350 [MiraLAX bowel prep] 17 gm PO DAILY 12/10/16 [History] Sertraline [Zoloft] 25 mg PO QAM 12/10/16 [History] Allergies/Adverse Reactions: Allergies shrimp Allergy (Verified 11/25/16 20:40) Abdominal Pain N/V/D - Respiratory Orders Smoking Cessation: Smoking cessation has been advised. For more information, call the [place] Tobacco Quit Line at 1-547-DYTU-NOW. CERTIFICATION: I certify that the transfer of the above named patient to an Extended Care Facility is necessary for the continuing treatment of the diagnosis listed. The above information is true and accurate reflection of patient's current condition. Confidential - Redisclosure prohibited without a patient's written consent.
--- NOTE | 2016-12-13 15:21 | Discharge Summary ---
Date of Encounter: 12/13/16 Time of Encounter: 15:19 - Discharge Diagnosis (1) Closed fracture of transverse process of lumbar vertebra Priority: Primary Status: Acute Qualifiers: Encounter type: initial encounter Qualified Code(s): S32.009A - Unspecified fracture of unspecified lumbar vertebra, initial encounter for closed fracture (2) Retroperitoneal hemorrhage Priority: Primary Status: Acute (3) Acute pain due to injury Priority: Secondary Status: Acute (4) Falls Priority: Secondary Status: Acute Qualifiers: Encounter type: initial encounter Qualified Code(s): W19.XXXA - Unspecified fall, initial encounter (5) DVT prophylaxis Priority: Secondary Status: Acute - Discharge Medications Home Medications: Atorvastatin [Lipitor] 10 mg PO HS 10/18/15 [History] Donepezil [Aricept] 10 mg PO HS 10/18/15 [History] OLANZapine [Zyprexa] 2.5 mg PO DAILY #30 tablet 06/12/16 [Rx] Cholecalciferol (D-3) [Vitamin D] 1,000 unit PO DAILY 12/10/16 [History] Cyanocobalamin (Vitamin B-12) [Vitamin B12] 1,000 mcg PO 12/10/16 [History] Docusate [Colace] 100 mg PO BID 12/10/16 [History] Lisinopril [Zestril] 5 mg PO QAM 12/10/16 [History] Magnesium Hydroxide [Milk of Magnesia] 2,400 mg PO DAILY PRN 12/10/16 [History] Melatonin [Melatin] 3 mg PO HS 12/10/16 [History] Memantine HCl 10 mg PO QAM 12/10/16 [History] Omeprazole [PriLOSEC] 20 mg PO QAM 12/10/16 [History] Polyethylene Glycol 3350 [MiraLAX bowel prep] 17 gm PO DAILY 12/10/16 [History] Sertraline [Zoloft] 25 mg PO QAM 12/10/16 [History] Acetaminophen [Tylenol] 650 mg PO Q6HR PRN #0 tablet 12/13/16 [Rx] Docusate [Colace] 100 mg PO BID PRN #0 capsule 12/13/16 [Rx] HYDROcodone/Acet 5/325 mg [[place] 5-325 mg] 1 tab PO Q4HR PRN #0 tablet 12/13/16 [Rx] Lisinopril [Zestril] 2.5 mg PO DAILY tablet 12/13/16 [Rx] Omeprazole [PriLOSEC] 20 mg PO BIDAC capsule. 12/13/16 [Rx] Allergies/Adverse Reactions: Allergies shrimp Allergy (Verified 11/25/16 20:40) Abdominal Pain N/V/D Date of admission: 12/12/16 10:43 Primary care physician: PCP NO Discharging clinician: Yoli Rodriguez Anticipated date of discharge: 12/13/16 - Patient Status Disposition: Transfer SNF Condition: Fair Overall status at discharge: patient is progressing back to baseline - Discharge Instructions Follow Up With: NO,PCP [Primary Care Provider] - - Diet and Activity Activity: as per physical therapy, increase activity as tolerated Diet: advance to your usual diet Hospital course: Mrs. Alysha Hudson is an 81-year-old female presented with a fall and multiple lumbar vertebral fractures. [facility] and has been having frequent falls. She described that she feels dizzy and before falling she knows that she is going to fall but has not lost her consciousness ever and neither did she loss control of bowel or bladder. She denies any vertigo but does seem dizzy. Overall she is very frail appearing female. However on physical examination she moves all extremity and her muscle strength is pretty good and she denies any bowel or bladder incontinence. CT abdomen showed retroperitoneal hemorrhage from ileus Psoas muslce but repeat Hb is stable.. At this time she is on pain control and will be [facility] to [facility] for further physical therapy and pain control. - Time Spent with Patient Total time spent providing and/or coordinating discharge services: Greater than 30 minutes - Constitutional Vitals: Temp Pulse Resp BP Pulse Ox 97.8 F 81 15 127/72 99 12/13/16 10:33 12/13/16 10:33 12/13/16 10:33 12/13/16 10:33 12/13/16 10:33 General appearance: Present: A&O X 2, pleasant, no acute distress - Head Head exam: Present: atraumatic, normocephalic - Eye Eye exam: Present: PERRL, conjuntiva pink, sclera anicteric Pupils: Present: PERRL - Neck Neck exam general surgery: Present: supple, trachea midline. Absent: lymphadenopathy - Respiratory Respiratory exam: Present: CTAB. Absent: accessory muscle use, rales, rhonchi, wheezes - Cardiovascular Cardiovascular exam: Present: RRR, +S1, +S2. Absent: diastolic murmur, gallop, rubs, systolic murmur - GI/Abdominal GI/Abdominal exam: Present: normal bowel sounds, soft, no peritoneal signs. Absent: distended, tenderness - Extremities Exam Extremities exam: Present: warm, radial pulses palpable and symetrical. Absent : calf tenderness, cyanotic, pedal edema - Neurological Exam Neurological exam: Present: CN II-XII intact, oriented X3, no focal deficits. Absent: pronater drift, facial droop, speech deficit - Skin Skin exam: Present: dry, intact - VTE Documentation of Mechanical Device: Intermittent pneumatic compression device
[2016-12-13 15:47] VITALS: BP 133/79
== END 2016-12-13 17:02 | DRG 552 ==
LOC: 3NENU 09:44 → EMEROO 09:44 → 3NENU 13:51
PROVIDERS: ADMIT Internal Medicine; ATTEND Internal Medicine

== ENCOUNTER 2017-10-03 12:10 | Inpatient (IN) ==
--- NOTE | 2017-10-03 12:34 | Emergency Department Note ---
Disposition Clinical Impression: Mucus plugging of bronchi, Bronchitis Deep vein thrombosis of lower extremity Qualifiers: Affected thrombotic vein of extremity: femoral Chronicity: acute Laterality: right Qualified Code(s): I82.411 - Acute embolism and thrombosis of right femoral vein Disposition: Admitted As Inpatient Condition: Good General Adult HPI - General Chief complaint: ED Extremity Problem,Nontraumatic Stated complaint: poss right leg DVT Time Seen by Provider: 10/03/17 12:19 Source: patient, EMS Limitations: no limitations - History of Present Illness Pain Scale: 0 - Related Data Home Medications Medication Instructions Recorded Confirmed Atorvastatin [Lipitor] 10 mg PO HS 10/18/15 10/03/17 Cyanocobalamin (Vitamin B-12) 1,000 mcg PO DAILY 12/10/16 10/03/17 [Vitamin B12] Docusate [Colace] 100 mg PO BID 12/10/16 10/03/17 Magnesium Hydroxide [Milk of 2,400 mg PO DAILY PRN 12/10/16 10/03/17 Magnesia] Memantine HCl 10 mg PO QAM 12/10/16 10/03/17 Polyethylene Glycol 3350 [MiraLAX 17 gm PO DAILY 12/10/16 10/03/17 bowel prep] Sertraline [Zoloft] 25 mg PO QAM 12/10/16 10/03/17 Bisacodyl [Woman's Laxative] 5 mg PO DAILY PRN 10/03/17 10/03/17 Loratadine [Allergy Relief] 10 mg PO DAILY 10/03/17 10/03/17 Montelukast [Singulair] 10 mg PO DAILY 10/03/17 10/03/17 Plecanatide [Trulance] 3 mg PO DAILY 10/03/17 10/03/17 Saline Nasal [place] [[place] Nasal 1 spr NS TID PRN 10/03/17 10/03/17 [place]] Sulfamethoxazole/Trimeth Oral 20 ml PO BID 10/03/17 10/03/17 [Bactrim Susp 400-80mg/10mL] Valproic Acid Oral Soln [Depakene 5 ml PO DAILY 10/03/17 10/03/17 Oral Soln] Vit C/Vit E/Lutein/Min/[place]-3 1 cap PO DAILY 10/03/17 10/03/17 [Ocuvite Softgel] Previous Rx's Medication Instructions Recorded OLANZapine [Zyprexa] 2.5 mg PO DAILY #30 tablet 06/12/16 Acetaminophen [Tylenol] 650 mg PO Q6HR PRN #0 tablet 12/13/16 Lisinopril [Zestril] 2.5 mg PO DAILY tablet 12/13/16 Omeprazole [PriLOSEC] 20 mg PO BIDAC capsule. 12/13/16 Allergies Allergy/AdvReac Type Severity Reaction Status Date / Time shrimp Allergy Abdominal Verified 11/25/16 20:40 Pain Past Medical History - Past Medical History Medical history: Reports: aortic aneurysm, arthritis, dementia, GERD, hypertension, osteoporosis, peripheral artery disease Surgical history: Reports: hip replacement, knee replacement, orthopedic, other , other Psychiatric history: Reports: depression, other - Social History Smoking Status: Never smoker Smokeless Tobacco Status: No Alcohol use: Reports: none Drug use: Reports: none Physical Exam - General Limitations: no limitations General appearance: other Course Vital Signs Temperature 97.0 F L 10/03/17 12:18 Pulse Rate 85 10/03/17 12:18 Respiratory Rate 18 10/03/17 12:18 Blood Pressure 147/100 10/03/17 12:18 O2 Sat by Pulse Oximetry 97 10/03/17 12:18 Temperature 97.0 F L 10/03/17 12:18 Pulse Rate 98 10/03/17 15:50 Respiratory Rate 16 10/03/17 17:13 Blood Pressure 159/96 10/03/17 17:13 O2 Sat by Pulse Oximetry 100 10/03/17 15:50 Oxygen Delivery Oxygen Delivery Room Air Medical Decision Making - Lab Data Result diagrams: 10/03/17 16:24 10/03/17 14:34 Lab Results 10/03/17 10/03/17 10/03/17 Range/Units 14:34 14:34 16:24 WBC 10.4 9.4 (4.3-11.1) K/mcL RBC 4.44 4.23 (3.82-4.97) M/mcL Hgb 12.8 12.0 (11.5-15.4) g/dL Hct 39.3 37.7 (35.3-44.9) % MCV 88.5 89.1 (83.0-100.0) fL MCH 28.8 28.4 (28.0-33.3) pg MCHC 32.6 31.8 (31.6-35.5) g/dL RDW 14.3 14.2 (11.5-14.5) % Plt Count 292 279 (140-400) K/mcL MPV 9.7 10.3 (9.4-12.4) fL Immature Gran % 0.4 (0-4) % Seg Neutrophils % 72.6 % Lymphocytes % 19.9 % Monocytes % 5.9 % Eosinophils % 1.0 % Basophils % 0.2 % Neutrophils # 7.5 (1.6-8.9) K/mcL Lymphocytes # 2.1 (0.6-4.6) K/mcL Monocytes # 0.6 (0.0-1.3) K/mcL Eosinophils # 0.1 (0.0-0.6) K/mcL Basophils # 0.0 (0.0-0.2) K/mcL Sodium 141 (136-145) mEq/L Potassium 4.0 (3.5-5.1) mEq/L Chloride 105 (98-107) mEq/L Carbon Dioxide 27 (23-29) mEq/L BUN 16 (8-23) mg/dL Creatinine 0.79 (0.60-1.20) mg/dL Est GFR ( Amer) > 60 (> 60) Est GFR (Non-Af Amer) > 60 (> 60) BUN/Creatinine Ratio 20 (6-26) Glucose 97 (70-105) mg/dL Calculated Osmolality 293 (280-300) Calcium 8.9 (8.6-10.3) mg/dL Troponin I < 0.03 (< 0.04) ng/mL Critical Care Time Critical Care Time: Yes Total Critical Care Time: 40 Attestation: Critical care performed: Time is exclusive of separately billable procedures. Time includes: direct patient care, patient reassessment, coordination of patient care, interpretation of data (laboratory data, radiology data, and respiratory data), review of patient's medical records, medical consultation and documentation of patient care. Procedures included in critical care time: Procedures excluded from critical care time: Attestation Statement - Attestation Attestation: I examined this patient and my medical decision-making was reviewed with the Resident Physician. I agree with the documented findings, disposition and treatment plan as described except to the extent set forth below. Patient presents to the emergency department with a chief complaint of right posterior knee pain. EMS states that the pain is acute and the daughter wanted her evaluated. The patient states her leg feels like it always does. She has noted to have dementia and his history is unreliable. On examination there is no swelling or discoloration to the leg. She has noted to have a pressure ulcer on the right lateral malleolus. Awake alert and pleasantly confused. No palpable mass behind the knee. This is swelling of the knee. She has good range of motion. Plan. Ultrasound. Patient with right femoral DVT. Will start on heparin and admitted to medicine.
--- NOTE | 2017-10-03 13:11 | Emergency Department Note ---
Disposition Clinical Impression: Mucus plugging of bronchi, Bronchitis Deep vein thrombosis of lower extremity Qualifiers: Affected thrombotic vein of extremity: femoral Chronicity: acute Laterality: right Qualified Code(s): I82.411 - Acute embolism and thrombosis of right femoral vein Disposition: Admitted As Inpatient Condition: Good Time of Disposition: 16:39 General Adult HPI - General Chief complaint: ED Extremity Problem,Nontraumatic Stated complaint: poss right leg DVT Time Seen by Provider: 10/03/17 12:19 Source: patient, EMS Limitations: no limitations Nursing Notes Reviewed: Yes Vital Signs Reviewed: Yes - History of Present Illness HPI Narrative: Sent from senior care for pain and right knee and mobile mass behind right knee. Pain Scale: 0 - Related Data Home Medications Medication Instructions Recorded Confirmed Atorvastatin [Lipitor] 10 mg PO HS 10/18/15 10/03/17 Cyanocobalamin (Vitamin B-12) 1,000 mcg PO DAILY 12/10/16 10/03/17 [Vitamin B12] Docusate [Colace] 100 mg PO BID 12/10/16 10/03/17 Magnesium Hydroxide [Milk of 2,400 mg PO DAILY PRN 12/10/16 10/03/17 Magnesia] Memantine HCl 10 mg PO QAM 12/10/16 10/03/17 Polyethylene Glycol 3350 [MiraLAX 17 gm PO DAILY 12/10/16 10/03/17 bowel prep] Sertraline [Zoloft] 25 mg PO QAM 12/10/16 10/03/17 Bisacodyl [Woman's Laxative] 5 mg PO DAILY PRN 10/03/17 10/03/17 Loratadine [Allergy Relief] 10 mg PO DAILY 10/03/17 10/03/17 Montelukast [Singulair] 10 mg PO DAILY 10/03/17 10/03/17 Plecanatide [Trulance] 3 mg PO DAILY 10/03/17 10/03/17 Saline Nasal [place] [[place] Nasal 1 spr NS TID PRN 10/03/17 10/03/17 [place]] Sulfamethoxazole/Trimeth Oral 20 ml PO BID 10/03/17 10/03/17 [Bactrim Susp 400-80mg/10mL] Valproic Acid Oral Soln [Depakene 5 ml PO DAILY 10/03/17 10/03/17 Oral Soln] Vit C/Vit E/Lutein/Min/[place]-3 1 cap PO DAILY 10/03/17 10/03/17 [Ocuvite Softgel] Previous Rx's Medication Instructions Recorded OLANZapine [Zyprexa] 2.5 mg PO DAILY #30 tablet 06/12/16 Acetaminophen [Tylenol] 650 mg PO Q6HR PRN #0 tablet 12/13/16 Lisinopril [Zestril] 2.5 mg PO DAILY tablet 12/13/16 Omeprazole [PriLOSEC] 20 mg PO BIDAC capsule. 12/13/16 Allergies Allergy/AdvReac Type Severity Reaction Status Date / Time shrimp Allergy Abdominal Verified 11/25/16 20:40 Pain Limitations: ROS unobtainable due to patients medical condition Past Medical History - Past Medical History Attestation: Yes The following information was validated with the patient. Source: patient Medical history: Reports: aortic aneurysm, arthritis, dementia, GERD, hypertension, osteoporosis, peripheral artery disease Surgical history: Reports: hip replacement, knee replacement, orthopedic, other , other Psychiatric history: Reports: depression, other - Social History Smoking Status: Never smoker Smokeless Tobacco Status: No Alcohol use: Reports: none Drug use: Reports: none Physical Exam - General Limitations: altered mental status (Pleasantly demented) General appearance: other - Head Head exam: atraumatic, normocephalic, normal inspection - Eye Eye exam: Present: normal appearance, PERRL, EOMI - ENT ENT exam: normal exam, normal oropharynx, mucous membranes moist - Neck Neck exam: Present: normal inspection, full ROM, trachea midline - Chest Chest inspection: Present: normal inspection, symmetric chest wall rise - Respiratory Respiratory exam: Present: normal lung sounds bilaterally. Absent: respiratory distress, accessory muscle use - Cardiovascular Cardiovascular exam: Present: regular rate, normal rhythm, normal heart sounds - Abdominal Exam Abdominal exam: Present: soft, Non-Tender. Absent: distention, rigidity, organomegaly - Extremities Exam Extremities exam: Present: normal inspection, full ROM, normal capillary refill. Absent: tenderness, pedal edema Course Course Narrative: Patient sent to the Emergency department by nursing facility for possible DVT in right lower extremity. Per EMS report she was complaining of pain and the nursing staff felt a mobile enlargement behind her right knee. Patient is pleasantly demented and unable to give any information. Patient does not appear to be in distress. Her lung sounds are clear heart tones are normal. Abdomen is soft nontender. She did not complain of pain whenever I palpate her move her lower extremities. She does have a stage I ulcer to her right lateral malleolus. Also some reddening of her left hip and sacral area. She does not have any gross deformity to her lower extremities. She has good pulses in both lower extremities. Her vitals are stable. She is not tachypneic she is not tachycardic. Per EMS report the patient is DNR however the nursing facility did not send this paperwork. They state that her daughter will be here shortly. We are awaiting the daughter's arrival at this time. - Reevaluation(s) Reevaluation #1: Shared decision-making with the patient's daughter revealed that we will do a CTA of patient's chest. We will get a basic lab workup on her. Time: 14:07 Reevaluation #2: I discussed with the patient's daughter the findings of the CTA. She states that the patient is on antibiotics for her cough at the senior care. We will start her on Levaquin while here and start a heparin drip. The daughter expresses that she is fine with the patient being on heparin while here but is still concerned about sending her back to senior care on this. I feel this is reasonable. She does have a significant fall risk. The daughter states that she falls frequently while at the nursing facility. We have discussed outpatient anticoagulation and the risk for intracranial bleeding if the patient was to fall. The daughter is concerned and is requesting to discuss filter placement as opposed outpatient anticoagulation. We will admit her to the hospital for the friability of the DVT. It was noted that the DVT was not stable to the wall of her leg. She had no signs of PE on her CTA. Time: 16:15 - Consultations Consultation #1: Dr Monteiro accepted Pt in stable condition. Time: 16:21 Vital Signs Temperature 97.0 F L 10/03/17 12:18 Pulse Rate 85 10/03/17 12:18 Respiratory Rate 18 10/03/17 12:18 Blood Pressure 147/100 10/03/17 12:18 O2 Sat by Pulse Oximetry 97 10/03/17 12:18 Temperature 97.0 F L 10/03/17 12:18 Pulse Rate 98 10/03/17 15:50 Respiratory Rate 16 10/03/17 17:13 Blood Pressure 159/96 10/03/17 17:13 O2 Sat by Pulse Oximetry 100 10/03/17 15:50 Oxygen Delivery Oxygen Delivery Room Air Medical Decision Making - Medical Records Medical records reviewed: Yes I reviewed the patient's medical records. - Lab Data Lab results reviewed: Yes I reviewed the patient's lab results. Result diagrams: 10/03/17 16:24 10/03/17 14:34 Lab Results 10/03/17 10/03/17 10/03/17 Range/Units 14:34 14:34 16:24 WBC 10.4 9.4 (4.3-11.1) K/mcL RBC 4.44 4.23 (3.82-4.97) M/mcL Hgb 12.8 12.0 (11.5-15.4) g/dL Hct 39.3 37.7 (35.3-44.9) % MCV 88.5 89.1 (83.0-100.0) fL MCH 28.8 28.4 (28.0-33.3) pg MCHC 32.6 31.8 (31.6-35.5) g/dL RDW 14.3 14.2 (11.5-14.5) % Plt Count 292 279 (140-400) K/mcL MPV 9.7 10.3 (9.4-12.4) fL Immature Gran % 0.4 (0-4) % Seg Neutrophils % 72.6 % Lymphocytes % 19.9 % Monocytes % 5.9 % Eosinophils % 1.0 % Basophils % 0.2 % Neutrophils # 7.5 (1.6-8.9) K/mcL Lymphocytes # 2.1 (0.6-4.6) K/mcL Monocytes # 0.6 (0.0-1.3) K/mcL Eosinophils # 0.1 (0.0-0.6) K/mcL Basophils # 0.0 (0.0-0.2) K/mcL Sodium 141 (136-145) mEq/L Potassium 4.0 (3.5-5.1) mEq/L Chloride 105 (98-107) mEq/L Carbon Dioxide 27 (23-29) mEq/L BUN 16 (8-23) mg/dL Creatinine 0.79 (0.60-1.20) mg/dL Est GFR ( Amer) > 60 (> 60) Est GFR (Non-Af Amer) > 60 (> 60) BUN/Creatinine Ratio 20 (6-26) Glucose 97 (70-105) mg/dL Calculated Osmolality 293 (280-300) Calcium 8.9 (8.6-10.3) mg/dL Troponin I < 0.03 (< 0.04) ng/mL - Radiology Data Radiology results reviewed: Yes I reviewed the patient's radiology results. Chest CTA 10/03/17 14:06 IMPRESSION: 1. No evidence of pulmonary embolism or aortic dissection. 2. Bronchial wall thickening and mucous plugging within the lower lungs bilaterally. 3. Patchy alveolar ground-glass opacity within lower lungs noted as well, suggesting possible infectious pneumonitis versus pulmonary edema. D/ / Emerson Ngo MD / Emerson Ngo MD Interpreting Provider: Emerson Ngo MD
[2017-10-03] MEDS ORDERED: 0.9 % Sodium Chloride 1,000 ML IVC ONE (14:05)
[2017-10-03] MEDS ORDERED: Isovue-370 500 ML INFUS..BTL IV ONE (14:06)
[2017-10-03 14:53] LABS: Basophils % 0.2 %; Eosinophils # 0.1 K/mcL (0.0-0.6); Hematocrit 39.3 % (35.3-44.9); Hemoglobin 12.8 g/dL (11.5-15.4); Immature Granulocytes % 0.4 % (0-4); Lymphocytes # 2.1 K/mcL (0.6-4.6); Lymphocytes % 19.9 %; Mean Corpuscular HGB Conc 32.6 g/dL (31.6-35.5); Mean Corpuscular Hemoglobin 28.8 pg (28.0-33.3); Mean Corpuscular Volume 88.5 fL (83.0-100.0); Mean Platelet Volume 9.7 fL (9.4-12.4); Monocytes # 0.6 K/mcL (0.0-1.3); Monocytes % 5.9 %; Neutrophils # 7.5 K/mcL (1.6-8.9); Platelet Count 292 K/mcL (140-400); Red Blood Count 4.44 M/mcL (3.82-4.97); Red Cell Distribution Width 14.3 % (11.5-14.5); Segmented Neutrophils % 72.6 %
[2017-10-03 15:07] LABS: BUN/Creatinine Ratio 20 (6-26); Blood Urea Nitrogen 16 mg/dL (8-23); Calcium 8.9 mg/dL (8.6-10.3); Carbon Dioxide 27 mEq/L (23-29); Chloride 105 mEq/L (98-107); Glucose 97 mg/dL (70-105); Osmolality,Calculated 293 (280-300); Sodium 141 mEq/L (136-145); Troponin I < 0.03 ng/mL (< 0.04); eGFR For African Americans > 60 (> 60); eGFR For Non-African Americans > 60 (> 60)
[2017-10-03] MEDS ORDERED: Levofloxacin 750 MG/150 ML 750 MG/150 ML BAG IVPB ONE (16:13)
[2017-10-03] MEDS ORDERED: *HR* Heparin 5,000 UNIT/ML VIAL IVP PRN ×2 (16:14)
[2017-10-03] MEDS ORDERED: Heparin 25,000 UNIT/500 ML D5W 25,000 UNIT/500 ML BAG IVC SCH (16:15)
[2017-10-03] MEDS ORDERED: Acetaminophen 325 MG TABLET PO PRN (16:46)
[2017-10-03] MEDS ORDERED: Naloxone 0.4 MG/ML INJ IVP PRN (16:46)
[2017-10-03] MEDS: *HR* Heparin 5,000 UNIT/ML VIAL IVP ONE ×2 (16:46→18:26)
--- NOTE | 2017-10-03 16:49 | Internal Med History&Physical ---
Date of Encounter: 10/03/17 Time of Encounter: 16:47 Internal Medicine - H&P: HPI Chief complaint: Leg swelling Admitted From: Emergency Dept Plans for Post Hospital Care: Home History of present illness: Ms. Hudson is a 82 year old female with history of hypertension, hyperlipidemia , dementia, frequent falls who presents from her nursing facility due to lower extremity swelling. The daughter wanted the patient to be evaluated and she was found to have a right deep vein thrombosis at the proximal superficial femoral vein. The patient was started on a heparin drip in the emergency department. The patient has been complaining of right lower extremity pain and apparently some mobile enlargement was felt around the right knee. She was brought in to get evaluated. No shortness of breath currently however the patient has been on treatment for pneumonia. A CTA chest was done which ruled out a PE but showed infiltrates. Noted to have elevated blood pressure diastolically with with a blood pressure of 110 on presentation. She is afebrile. No leukocytosis. Labs unremarkable. Spoke to daughter about treatment plans and the fact that her mother is not the best candidate for anticoagulation due to previous falls and fractures and possibly a previous hematoma/bleed per the daughter. IVC filter was discussed. The daughter is agreeable to have her mother on heparin while awaiting IVC filter. Denies fever , chills, nausea, vomiting, chest pain, abdominal pain, urinary symptoms, or neurological symptoms. Past Med Surg Social Fam HX - Past Medical History Medical history: aortic aneurysm, arthritis, dementia, GERD, hypertension, osteoporosis, peripheral artery disease Psychiatric history: depression, other - Past Surgical History Surgical History: hip replacement, knee replacement, orthopedic, other, other - Social History Smoking Status: Never smoker Smokeless Tobacco Status: No Alcohol use: none Drug use: none - Family History Mother Living Status: Hx Family Cardiac Disorders: Yes Hx Family Cancer: Yes Hx Family Endocrine Disorder: Yes (dm) Father Living Status: Hx Family Cardiac Disorders: Yes Internal Medicine - H&P: Meds Atorvastatin [Lipitor] 10 mg PO HS 10/18/15 [History] OLANZapine [Zyprexa] 2.5 mg PO DAILY #30 tablet 06/12/16 [Rx] Cyanocobalamin (Vitamin B-12) [Vitamin B12] 1,000 mcg PO DAILY 12/10/16 [History ] Docusate [Colace] 100 mg PO BID 12/10/16 [History] Magnesium Hydroxide [Milk of Magnesia] 2,400 mg PO DAILY PRN 12/10/16 [History] Memantine HCl 10 mg PO QAM 12/10/16 [History] Polyethylene Glycol 3350 [MiraLAX bowel prep] 17 gm PO DAILY 12/10/16 [History] Sertraline [Zoloft] 25 mg PO QAM 12/10/16 [History] Acetaminophen [Tylenol] 650 mg PO Q6HR PRN #0 tablet 12/13/16 [Rx] Lisinopril [Zestril] 2.5 mg PO DAILY tablet 12/13/16 [Rx] Omeprazole [PriLOSEC] 20 mg PO BIDAC capsule. 12/13/16 [Rx] Bisacodyl [Woman's Laxative] 5 mg PO DAILY PRN 10/03/17 [History] Loratadine [Allergy Relief] 10 mg PO DAILY 10/03/17 [History] Montelukast [Singulair] 10 mg PO DAILY 10/03/17 [History] Plecanatide [Trulance] 3 mg PO DAILY 10/03/17 [History] Saline Nasal [place] [[place] Nasal [place]] 1 spr NS TID PRN 10/03/17 [History] Sulfamethoxazole/Trimeth Oral [Bactrim Susp 400-80mg/10mL] 20 ml PO BID [History] Valproic Acid Oral Soln [Depakene Oral Soln] 5 ml PO DAILY 10/03/17 [History] Vit C/Vit E/Lutein/Min/[place]-3 [Ocuvite Softgel] 1 cap PO DAILY 10/03/17 [ History] 3 Allergy/AdvReac Type Severity Reaction Status Date / Time shrimp Allergy Abdominal Verified 11/25/16 20:40 Pain All Systems PM: A 10-system review of systems was performed and is negative for pertinent findings except as documented above in the HPI. Review of systems: All systems reviewed are negative except as mentioned above - Constitutional Vitals: Temp Pulse Resp BP Pulse Ox 97.0 F L 98 18 156/110 100 10/03/17 12:18 10/03/17 15:50 10/03/17 15:50 10/03/17 14:41 10/03/17 15:50 Exam: GEN: NAD HEENT: AT, NC, No cyanosis, oral mucosa is moist, No JVD Lymphatics: No lymphadenoapthy Eyes: Extrocular muscles intact, anicteric CVS:RRR. S1, S2, No m/r/g RESP: CTAB ABD: Soft, NT, ND, +BS EXT: No edema, No rashes, 2+ DP NEURO: Nonfocal, CN II-XII intact, No focal motor or sensory deficits Psych: Cooperative, Not anxious or depressed Internal Med - H&P Results - Labs CBC & Chem 7: 10/03/17 16:24 10/03/17 14:34 - Assessment and plan (1) DVT (deep venous thrombosis) Current Visit: Yes Status: Acute Assessment and plan: Not the best candidate for anticoagulation given dementia and frequent falls causing multiple fracture and retroperitoneal hematoma/bleed. On heparin currently which I will keep tonigh. She will likely need an IVC filter to avoid being on anticoagulation. Will ask IR to do tomorrow. NPO after midnight. Qualifiers: DVT location: lower extremity Affected thrombotic vein of extremity: femoral Chronicity: acute Laterality: right Qualified Code(s): I82.411 - Acute embolism and thrombosis of right femoral vein (2) Pneumonia Current Visit: Yes Status: Acute Assessment and plan: Patient is being treated for pneumonia at the nursing facility. Was on Bactrim. I will restart that. Not sure how long she has been on it. Will get more info. Given levaquin by the ED. Afebrile and no leukoctyosis. Qualifiers: Pneumonia type: due to unspecified organism Laterality: unspecified laterality Lung location: unspecified part of lung Qualified Code(s): J18.9 - Pneumonia, unspecified organism (3) HLD (hyperlipidemia) Current Visit: Yes Status: Acute Assessment and plan: c/w statin Qualifiers: Hyperlipidemia type: pure hypercholesterolemia Qualified Code(s): E78.00 - Pure hypercholesterolemia, unspecified; E78.0 - Pure hypercholesterolemia (4) Dementia Current Visit: No Status: Chronic Assessment and plan: supportive care. On [place] Qualifiers: Dementia type: unspecified type Dementia behavioral disturbance: without behavioral disturbance Qualified Code(s): F03.90 - Unspecified dementia without behavioral disturbance (5) HTN (hypertension) Current Visit: No Status: Chronic Assessment and plan: Resume her regular antihypertensives Qualifiers: Hypertension type: essential hypertension Qualified Code(s): I10 - Essential (primary) hypertension - Time Spent With Patient Total time spent is greater than 50% in coordination of care (as documented) at patient's floor/unit and/or counseling patient:
[2017-10-03 16:52] LABS: Hematocrit 37.7 % (35.3-44.9); Mean Corpuscular HGB Conc 31.8 g/dL (31.6-35.5); Mean Corpuscular Hemoglobin 28.4 pg (28.0-33.3); Mean Corpuscular Volume 89.1 fL (83.0-100.0); Mean Platelet Volume 10.3 fL (9.4-12.4); Platelet Count 279 K/mcL (140-400); Red Blood Count 4.23 M/mcL (3.82-4.97); Red Cell Distribution Width 14.2 % (11.5-14.5)
[2017-10-03 16:55] LABS: INR 1.1; Prothrombin Time 11.4 Seconds (9.4-12.1)
[2017-10-03 16:58] LABS: Activated Partial Thrombo Time 28.9 Seconds (26.0-36.0)
[2017-10-03] MEDS ORDERED: *HR* LORazepam 0.5 MG TABLET PO ONE (19:12)
[2017-10-03] MEDS: Sulfamethoxazole/Trimeth Oral Soln 400-80mg/10 ML UDC PO SCH (22:26)
[2017-10-04 01:30] LABS: Basophils % 0.3 %; Eosinophils # 0.1 K/mcL (0.0-0.6); Eosinophils % 1.3 %; Hematocrit 34.8 % (35.3-44.9); Hemoglobin 11.4 g/dL (11.5-15.4); Immature Granulocytes % 0.6 % (0-4); Lymphocytes # 2.1 K/mcL (0.6-4.6); Lymphocytes % 26.5 %; Mean Corpuscular HGB Conc 32.8 g/dL (31.6-35.5); Mean Corpuscular Hemoglobin 28.9 pg (28.0-33.3); Mean Corpuscular Volume 88.3 fL (83.0-100.0); Mean Platelet Volume 9.9 fL (9.4-12.4); Monocytes # 0.5 K/mcL (0.0-1.3); Monocytes % 6.8 %; Neutrophils # 5.1 K/mcL (1.6-8.9); Platelet Count 268 K/mcL (140-400); Red Blood Count 3.94 M/mcL (3.82-4.97); Red Cell Distribution Width 14.1 % (11.5-14.5); Segmented Neutrophils % 64.5 %
[2017-10-04 01:56] LABS: BUN/Creatinine Ratio 21 (6-26); Blood Urea Nitrogen 15 mg/dL (8-23); Calcium 8.5 mg/dL (8.6-10.3); Carbon Dioxide 26 mEq/L (23-29); Chloride 108 mEq/L (98-107); Glucose 91 mg/dL (70-105); Magnesium 2.1 mg/dL (1.6-2.6); Osmolality,Calculated 292 (280-300); Potassium 3.8 mEq/L (3.5-5.1); Sodium 141 mEq/L (136-145); eGFR For African Americans > 60 (> 60); eGFR For Non-African Americans > 60 (> 60)
[2017-10-04] MEDS ORDERED: OLANZapine 5 MG TAB.RAPDIS PO SCH (09:00)
[2017-10-04] MEDS ORDERED: Cyanocobalamin (B-12) 1,000 MCG TABLET PO SCH (09:00)
[2017-10-04] MEDS ORDERED: Loratadine 10 MG TABLET PO SCH (09:00)
[2017-10-04] MEDS ORDERED: Heparin 1,000 UNITS/500 mL 500 ML ONE (09:36)
[2017-10-04] MEDS ORDERED: 0.9 % Sodium Chloride 500 ML ONE (10:46)
[2017-10-04] MEDS ORDERED: *HR* FentaNYL (PF) 100 MCG/2 ML VIAL IVP ONE (10:51)
[2017-10-04] MEDS ORDERED: Acetaminophen 325 MG TABLET PO PRN (10:51)
[2017-10-04] MEDS ORDERED: Clindamycin 600 MG/50 ML 600 MG/50 ML IV.SOLN IVPB ONE (10:51)
[2017-10-04] MEDS ORDERED: *HR* Midazolam HCl 2 MG/2 ML VIAL IVP ONE (10:51)
[2017-10-04] MEDS ORDERED: *HR* Midazolam HCl 2 MG/2 ML VIAL ONE (11:02)
[2017-10-04] MEDS ORDERED: *HR* FentaNYL (PF) 100 MCG/2 ML VIAL ONE (11:02)
--- NOTE | 2017-10-04 13:17 | Physician Discharge Referral ---
ExtendedCare Referral Info Institutional Level of Care: Skilled - Diagnosis (1) DVT (deep venous thrombosis) Priority: Primary Status: Acute (2) Pneumonia Priority: Secondary Status: Acute (3) HLD (hyperlipidemia) Priority: Secondary Status: Acute (4) Dementia Priority: Secondary Status: Chronic (5) HTN (hypertension) Priority: Secondary Status: Chronic - Transfer Medications Home Medications: Atorvastatin [Lipitor] 10 mg PO HS 10/18/15 [History] OLANZapine [Zyprexa] 2.5 mg PO DAILY #30 tablet 06/12/16 [Rx] Cyanocobalamin (Vitamin B-12) [Vitamin B12] 1,000 mcg PO DAILY 12/10/16 [History ] Docusate [Colace] 100 mg PO BID 12/10/16 [History] Magnesium Hydroxide [Milk of Magnesia] 2,400 mg PO DAILY PRN 12/10/16 [History] Memantine HCl 10 mg PO QAM 12/10/16 [History] Polyethylene Glycol 3350 [MiraLAX bowel prep] 17 gm PO DAILY 12/10/16 [History] Sertraline [Zoloft] 25 mg PO QAM 12/10/16 [History] Acetaminophen [Tylenol] 650 mg PO Q6HR PRN #0 tablet 12/13/16 [Rx] Lisinopril [Zestril] 2.5 mg PO DAILY tablet 12/13/16 [Rx] Omeprazole [PriLOSEC] 20 mg PO BIDAC capsule. 12/13/16 [Rx] Bisacodyl [Woman's Laxative] 5 mg PO DAILY PRN 10/03/17 [History] Loratadine [Allergy Relief] 10 mg PO DAILY 10/03/17 [History] Montelukast [Singulair] 10 mg PO DAILY 10/03/17 [History] Plecanatide [Trulance] 3 mg PO DAILY 10/03/17 [History] Saline Nasal [place] [[place] Nasal [place]] 1 spr NS TID PRN 10/03/17 [History] Sulfamethoxazole/Trimeth Oral [Bactrim Susp 400-80mg/10mL] 20 ml PO BID [History] Valproic Acid Oral Soln [Depakene Oral Soln] 5 ml PO DAILY 10/03/17 [History] Vit C/Vit E/[place]in/Min/[place]-3 [Ocuvite Softgel] 1 cap PO DAILY 10/03/17 [ History] Allergies/Adverse Reactions: 3 Allergy/AdvReac Type Severity Reaction Status Date / Time shrimp Allergy Abdominal Verified 11/25/16 20:40 Pain - Respiratory Orders Smoking Cessation: Smoking cessation has been advised. For more information, call the [place] Tobacco Quit Line at 4-714-HZWM-NOW. - Diet Orders Pureed CERTIFICATION: I certify that the transfer of the above named patient to an Extended Care Facility is necessary for the continuing treatment of the diagnosis listed. The above information is true and accurate reflection of patient's current condition. Confidential - Redisclosure prohibited without a patient's written consent.
--- NOTE | 2017-10-04 13:17 | Discharge Summary ---
Date of Encounter: 10/04/17 Time of Encounter: 13:15 - Discharge Diagnosis (1) DVT (deep venous thrombosis) Priority: Primary Status: Acute Qualifiers: DVT location: lower extremity Affected thrombotic vein of extremity: femoral Chronicity: acute Laterality: right Qualified Code(s): I82.411 - Acute embolism and thrombosis of right femoral vein (2) Pneumonia Priority: Secondary Status: Acute Qualifiers: Pneumonia type: due to unspecified organism Laterality: unspecified laterality Lung location: unspecified part of lung Qualified Code(s): J18.9 - Pneumonia, unspecified organism (3) HLD (hyperlipidemia) Priority: Secondary Status: Acute Qualifiers: Hyperlipidemia type: pure hypercholesterolemia Qualified Code(s): E78.00 - Pure hypercholesterolemia, unspecified; E78.0 - Pure hypercholesterolemia (4) Dementia Priority: Secondary Status: Chronic Qualifiers: Dementia type: unspecified type Dementia behavioral disturbance: without behavioral disturbance Qualified Code(s): F03.90 - Unspecified dementia without behavioral disturbance (5) HTN (hypertension) Priority: Secondary Status: Chronic Qualifiers: Hypertension type: essential hypertension Qualified Code(s): I10 - Essential (primary) hypertension Hospital course: Ms. Hudson is a 82 year old female with history of hypertension, hyperlipidemia , dementia, frequent falls who presents from her nursing facility due to lower extremity swelling. The daughter wanted the patient to be evaluated and she was found to have a right deep vein thrombosis at the proximal superficial femoral vein. The patient was started on a heparin drip in the emergency department. The patient has been complaining of right lower extremity pain and apparently some mobile enlargement was felt around the right knee. She was brought in to get evaluated. No shortness of breath currently however the patient has been on treatment for pneumonia. A CTA chest was done which ruled out a PE but showed infiltrates. Noted to have elevated blood pressure diastolically with with a blood pressure of 110 on presentation. She was afebrile. No leukocytosis. Labs unremarkable. Spoke to daughter about treatment plans and the fact that her mother is not the best candidate for anticoagulation due to previous falls and fractures and possibly a previous hematoma/bleed per the daughter. IVC filter was discussed and thought to be the best course of action. She was admitted and an IVC filter was placed. She received heparin drip in the meantime till the IVC filter was placed. She was discharged after the IVC filter placement back to her previous nursing facility on 10/04. She was being treated for pneumonia at the nursing facility prior to arrival here. CTA did show infiltrates. The patient was afebrile with no white count. I discontinued her Bactrim as she was on that before. She was discharged on it as well. - Time Spent with Patient Total time spent providing and/or coordinating discharge services: Greater than 30 minutes - Discharge Medications Home Medications: Atorvastatin [Lipitor] 10 mg PO HS 10/18/15 [History] OLANZapine [Zyprexa] 2.5 mg PO DAILY #30 tablet 06/12/16 [Rx] Cyanocobalamin (Vitamin B-12) [Vitamin B12] 1,000 mcg PO DAILY 12/10/16 [History ] Docusate [Colace] 100 mg PO BID 12/10/16 [History] Magnesium Hydroxide [Milk of Magnesia] 2,400 mg PO DAILY PRN 12/10/16 [History] Memantine HCl 10 mg PO QAM 12/10/16 [History] Polyethylene Glycol 3350 [MiraLAX bowel prep] 17 gm PO DAILY 12/10/16 [History] Sertraline [Zoloft] 25 mg PO QAM 12/10/16 [History] Acetaminophen [Tylenol] 650 mg PO Q6HR PRN #0 tablet 12/13/16 [Rx] Lisinopril [Zestril] 2.5 mg PO DAILY tablet 12/13/16 [Rx] Omeprazole [PriLOSEC] 20 mg PO BIDAC capsule. 12/13/16 [Rx] Bisacodyl [Woman's Laxative] 5 mg PO DAILY PRN 10/03/17 [History] Loratadine [Allergy Relief] 10 mg PO DAILY 10/03/17 [History] Montelukast [Singulair] 10 mg PO DAILY 10/03/17 [History] Plecanatide [Trulance] 3 mg PO DAILY 10/03/17 [History] Saline Nasal Elgin [Chicot Nasal Elgin] 1 spr NS TID PRN 10/03/17 [History] Sulfamethoxazole/Trimeth Oral [Bactrim Susp 400-80mg/10mL] 20 ml PO BID [History] Valproic Acid Oral Soln [Depakene Oral Soln] 5 ml PO DAILY 10/03/17 [History] Vit C/Vit E/Lutein/Min/[place]-3 [Ocuvite Softgel] 1 cap PO DAILY 10/03/17 [ History] Allergies/Adverse Reactions: 3 Allergy/AdvReac Type Severity Reaction Status Date / Time shrimp Allergy Abdominal Verified 11/25/16 20:40 Pain Date of admission: 10/04/17 08:23 Primary care physician: Homa Maciel Consults: 10/04/17 10:46 Consult to Speech Therapy [CONS] Routine Comment: Evaluate, develop and implement POC Reason for Consult: swallow eval Call Completed: No - Constitutional Vitals: Temp Pulse Resp BP Pulse Ox 98.3 F 61 15 123/76 95 10/04/17 05:36 10/04/17 11:59 10/04/17 11:59 10/04/17 11:59 10/04/17 11:59 Exam: GEN: Alert and oriented 1. Pleasantly confused. CVS: RRR. S1, S2, No m/r/g RESP: CTAB ABD: Soft, NT, ND, +BS EXT: No edema. 2+ DP. No rashes NEURO: Nonfocal - Patient Status Disposition: Transfer SNF Condition: Good Overall status at discharge: patient is progressing back to baseline - Discharge Instructions Follow Up With: Homa Maciel [Primary Care Provider] - - Diet and Activity Activity: increase activity as tolerated Diet: other (pureed)
[2017-10-04] MEDS: Valproic Acid Oral Soln 250 MG/5 ML UDC PO SCH ×2 (13:30→13:47)
[2017-10-04] MEDS: Sulfamethoxazole/Trimeth Oral Soln 400-80mg/10 ML UDC PO SCH (13:48)
[2017-10-04 14:57] VITALS: BP 140/91
[2017-10-04] MEDS ORDERED: Levofloxacin 500 MG/100 ML 500 MG/100 ML BAG IVPB SCH (18:00)
== END 2017-10-04 16:36 | DRG 252 ==
LOC: 3ANU 12:10 → EMEROO 12:10 → 3ANU 17:13
PROVIDERS: ADMIT Internal Medicine; ATTEND Internal Medicine